=== PATIENT | female | born 1990 | race Caucasian/White ===

== ENCOUNTER 2018-12-28 21:17 | Emergency (ER) | payer MEDICAID, OTHER ==
[~2018-12-28] VITALS: Ht 164.5 cm; Wt 65.0 kg
[2018-12-28] MEDS ORDERED: LIDOCAINE/EPI 2% 1:100,00 (XYLOCAINE) 20 ML VIAL ONE (21:44)
[2018-12-28] MEDS ORDERED: LIDOCAINE/EPI 2% 1:100,00 (XYLOCAINE) 20 ML VIAL INJ ONE (21:45)
[2018-12-28] MEDS ORDERED: LIDOCAINE/EPI 1%-1:100,000 (XYLOCAINE) 20ML INJ ONE (21:45)
[2018-12-28] MEDS ORDERED: CLINDAMYCIN 150 MG (CLEOCIN) CAP PO ONE (21:45)
[2018-12-28] MEDS ORDERED: oxyCODONE/APAP 5/325MG (PERCOCET 5) TABLET PO ONE (21:45)
[2018-12-28] MEDS ORDERED: BUPIVACAINE 0.5% 30 ML (SENSORCAINE) VIAL INJ ONE (21:45)
[2018-12-28] MEDS ORDERED: IBUPROFEN 800 MG (MOTRIN) TAB PO ONE (21:45)
[2018-12-28] MEDS ORDERED: ONDANSETRON 4 MG (ZOFRAN) ORAL DISSOLVE TAB ONE (21:55)
[2018-12-28] MEDS ORDERED: ONDANSETRON 4 MG (ZOFRAN) ORAL DISSOLVE TAB PO STA ×2 (21:57→21:58)
--- NOTE | 2018-12-28 22:05 | ED EENT ---
History of Present Illness General Chief Complaint: Dental Problems/Pain Stated Complaint: ORAL PAIN Nursing Triage Note: Patient states that she has had tooth issues on the upper left for the past year. Patient states that it has gotten progressively worse over that time. Patient states her pain is a 10 on the 1-10 pain scale. History of Present Illness Date Seen by Provider: Dec 28, 2018 Time Seen by Provider: 21:15 Initial Comments The patient is a 28-year-old female who is otherwise healthy. She presents with concern for acute onset of acute on chronic left maxillary dental pain. Discom fort has been present intermittently for at least a year in association with several necrotic molars posteriorly on the left. Patient states that discomfort is considerably worse over the last few days and particularly this evening is a 10 out of 10 in severity. No fevers, trismus, significant facial swelling, pain or swelling to the floor of the mouth, trouble with secretions, shortness of breath. Patient has been taking ibuprofen intermittently without relief of symptoms. Allergies and Home Medications Allergies Coded Allergies: No Known Drug Allergies (Unverified , 12/28/18) Patient Home Medication List Home Medication List Reviewed: Yes Review of Systems Review of Systems Constitutional: see HPI All Other Systems Reviewed Negative Unless Noted: Yes (Negative excepted noted.) Past Srswuho-Ogvqme-Szutvf Hx Past Med/Social Hx: Reviewed Nursing Past Med/Soc Hx Patient Social History Alcohol Use: Denies Use Recreational Drug Use: No Smoking Status: Current Everyday Smoker Type Used: Cigarettes Recent Foreign Travel: No Contact w/Someone Who Travel: No Recent Infectious Disease Expo: No Physical Abuse: No Sexual Abuse: No Mistreated: No Fear: No Seasonal Allergies Seasonal Allergies: No Past Medical History Surgeries: No Respiratory: No Cardiac: No Neurological: No Genitourinary: No Gastrointestinal: No Musculoskeletal: No Endocrine: No HEENT: Yes (Dental Abscess) Cancer: No Psychosocial: No Integumentary: No Family Medical History Reviewed Nursing Family Hx Physical Exam Vital Signs Vital Signs - First Documented 12/28/18 21:29 Temp 36.4 Pulse 80 Resp 20 B/P (MAP) 135/98 (110) Pulse Ox 96 O2 Delivery Room Air Height, Weight, BMI Height: '" Weight: lbs. oz. kg; 24.00 BMI Method: General Appearance: no apparent distress This is a younger female appearing nontoxic and in no acute distress. Head is normocephalic and atraumatic. Neck is supple and nontender. Oropharynx is moist. There is extensive dental decay with necrotic molars noted to the left posterior maxillary region without associated gingival erythema, fluctuance or tenderness. No overlying facial swelling. No other obvious intraoral abnormality. No posterior oropharyngeal erythema, tonsillar exudates or swelling or uvular deviation and patient is tolerating secretions very well and speaking in a normal tone of voice. No trismus. No pain or swelling to the floor of the mouth or elevation of the tongue. Lungs are clear to auscultation in all stations. There is a normal S1 and S2 without rubs or gallops and capillary refill is appropriate, less than 2 seconds globally. Abdomen is soft, nontender and nondistended. Skin is warm and dry without cyanosis, clubbing or edema. P sychiatrically, the patient demonstrates appropriate mood and affect and is alert. Procedures/Interventions Dental Procedures: Left superior posterior and middle alveolar nerve blocks completed with 1:1 mixture of lidocaine and bupivicaine in standard fashion without complication. Patient tolerated the procedure well and had complete relief of dental pain. Progress/Results/Core Measures Results/Orders My Orders Orders - MEAGAN HOSKINS MD Oxycodone/Apap 5/325mg Tablet (Percocet (12/28/18 21:45) Ibuprofen Tablet (Motrin Tablet) (12/28/18 21:45) Clindamycin Capsule (Cleocin Capsule) (12/28/18 21:45) Bupivacaine 0.5% Injection (Sensorcaine (12/28/18 21:45) Lidocaine/Epi 2% 1:100,000 (Xylocaine/Ep (12/28/18 21:45) Lidocaine/Epi 2% 1:100,000 (Xylocaine/Ep (12/28/18 21:44) Ondansetron Oral Dissolve Tab (Zofran (12/28/18 21:55) Ondansetron Oral Dissolve Tab (Zofran (12/28/18 21:57) Ondansetron Oral Dissolve Tab (Zofran (12/28/18 21:58) Medications Given in ED Current Medications Medications Dose Ordered Sig/Vannesa Route Start Time Stop Time Status Last Admin Dose Admin Bupivacaine HCl 30 ml ONCE ONCE INJ 12/28/18 21:45 12/28/18 21:46 DC 12/28/18 21:50 5 ML Clindamycin HCl 450 mg ONCE ONCE PO 12/28/18 21:45 12/28/18 21:46 DC 12/28/18 21:49 450 MG Ibuprofen 800 mg ONCE ONCE PO 12/28/18 21:45 12/28/18 21:46 DC 12/28/18 21:49 800 MG Lidocaine/ Epinephrine 20 ml ONCE ONCE INJ 12/28/18 21:45 12/28/18 21:46 DC 12/28/18 21:49 5 ML Oxycodone/ Acetaminophen 1 tab ONCE ONCE PO 12/28/18 21:45 12/28/18 21:46 DC 12/28/18 21:49 1 TAB Vital Signs/I&O 12/28/18 21:29 Temp 36.4 Pulse 80 Resp 20 B/P (MAP) 135/98 (110) Pulse Ox 96 O2 Delivery Room Air Blood Pressure Mean: 110 Progress Progress Note : Time: 22:02 Progress Note Options discussed with the patient and she would like to proceed with a left superior posterior alveolar nerve block. We will additionally treat with medication for discomfort and antibiotic as noted. Patient does have a penicillin allergy so will use clindamycin. Patient is counseled that we are unable to definitively treat her dental decay here in the emergency department and that it is of paramount importance that she follow up very closely with the dental clinic. We have discussed low cost dental clinics and will provide referral information for [facility] dental clinic in [place]. Update 4: Nerve block completed without complication and patient tolerated the procedure well. She did have some nausea post procedurally which was treated with Zofran. We will proceed with discharge home at this time with medication for discomfort, clindamycin and referral information for dental clinic follow-up as noted. The patient understands that if she feels worse is that of better or develops other new symptoms of concern that she will need to return immediately for reevaluation. All questions are answered. Departure Impression Primary Impression: Dental decay Disposition: 01 HOME, SELF-CARE Condition: Improved Departure-Patient Inst. Referrals: NO,LOCAL PHYSICIAN (PCP) Primary Care Physician Patient Instructions: Dental Pain, Dental Pain (DC) Add. Discharge Instructions: Please call during weekday business hours to find out the schedule for the [facility]. They offer very inexpensive comprehensive dental services. It is critical that you follow up closely with a dentist as discussed. Take your medication for discomfort and finish the antibiotic as prescribed. Return right away with worsened symptoms or other new concern. Scripts [morphine IR tablet] No Conflict Check 15 MG PO Q6H for Breakthrough Pain, #9 TAB 0 Refills Prov: MEAGAN HOSKINS MD 12/28/18 Ibuprofen (Ibuprofen) 800 Mg Tablet 800 MG PO Q8H PRN for PAIN, #30 TAB 0 Refills Prov: MEAGAN HOSKINS MD 12/28/18 Clindamycin HCl (Clindamycin HCl) 150 Mg Capsule 300 MG PO TID for 10 Days, #60 CAP Prov: MEAGAN HOSKINS MD 12/28/18 MEAGAN HOSKINS MD Dec 28, 2018 22:04
[2018-12-28] MEDS ORDERED: MORPHINE IR PO (22:13)
[2018-12-28] MEDS ORDERED: IBUP-1780 PO (22:13)
[2018-12-28] MEDS ORDERED: CLIN150C17 PO (22:13)
[2018-12-28 22:15] VITALS: BP 104/53
== END 2018-12-28 22:15 | disposition home or self-care (01) ==
LOC: EDUNIT# 21:17 → ER FS 21:18
DX: K02.9 Dental caries, unspecified (principal); F17.210 Nicotine dependence, cigarettes, uncomplicated
CPT/HCPCS: 99283

== ENCOUNTER 2021-10-18 06:21 | Emergency (ER) | payer MEDICAID ==
[~2021-10-18 06:21] MED LIST: CLIN150C20 PO; IBUP-1780 PO; MORPHINE IR PO
[2021-10-18] MEDS ORDERED: FAMOTIDINE 20 MG (PEPCID) TABLET PO STA (06:30)
[2021-10-18] MEDS ORDERED: LIDOCAINE 2% VISCOUS 15 ML UDC PO ONE (06:30)
[2021-10-18] MEDS ORDERED: ANTACID SUSP 30 ML UDC (MYLANTA) PO ONE (06:30)
[2021-10-18] MEDS ORDERED: KETOROLAC 30 MG/ML VIAL IVP ONE (06:30)
[2021-10-18] MEDS ORDERED: ONDANSETRON 4 MG/2 ML (SDV) Z0FRAN IVP ONE (06:30)
[2021-10-18 06:37] LABS: HEMATOCRIT 39 % (35-52); HEMOGLOBIN 13.2 g/dL (11.5-16.0); MEAN CORPUSCULAR HEMOGLOBIN 31 pg (25-34); WHITE BLOOD COUNT 7.2 10^3/uL (4.3-11.0)
[2021-10-18 06:38] LABS: BILIRUBIN,URINE NEGATIVE (NEGATIVE); CLARITY,URINE CLEAR; COLOR,URINE YELLOW; GLUCOSE, URINE (UA) NEGATIVE (NEGATIVE); KETONES,URINE NEGATIVE (NEGATIVE); LEUKOCYTE ESTERASE ,URINE NEGATIVE (NEGATIVE); NITRITE,URINE NEGATIVE (NEGATIVE); PROTEIN,URINE NEGATIVE (NEGATIVE)
[2021-10-18 06:38] LABS: BASOPHILS % (AUTO) 0 % (0-10); EOSINOPHILS # (AUTO) 0.1 10^3/uL (0.0-0.3); EOSINOPHILS % (AUTO) 1 % (0-10); LYMPHOCYTES # (AUTO) 2.5 X 10^3 (1.0-4.0); LYMPHOCYTES % (AUTO) 34 % (12-44); MEAN CORPUSCULAR HGB CONC 34 g/dL (32-36); MEAN CORPUSCULAR VOLUME 92 fL (80-99); MONOCYTES # (AUTO) 0.8 X 10^3 (0.0-1.0); MONOCYTES % (AUTO) 10 % (0-12); NEUTROPHILS # (AUTO) 3.9 X 10^3 (1.8-7.8); NEUTROPHILS % (AUTO) 54 % (42-75); PLATELET COUNT 197 10^3/uL (130-400)
[2021-10-18 06:42] LABS: BACTERIA,URINE MODERATE /HPF; WBC,URINE 0-2 /HPF
--- NOTE | 2021-10-18 06:43 | ED Abdominal Pain ---
General Chief Complaint: Abdominal/GI Problems Stated Complaint: RIGHT SIDE PAIN Nursing Triage Note: Pt complaining of RUQ pain that radiates to her back. Pt states she has had gallbladder problems in the past and was supposed to follow up but never did Source of Information: Patient Exam Limitations: No Limitations (KATARINA BROTHERS MD) History of Present Illness Date Seen by Provider: Oct 18, 2021 Time Seen by Provider: 06:24 Initial Comments 31-year-old female with no pertinent past medical history coming in due to right upper quadrant pain. It sharp/sometimes burning, radiates through to her back, seems intermittent, moderate, worse with eating, better with rest. Woke her up around 2 AM in the morning. She had pain like this 3 months ago went to an ER in [place] where she lived, and was told she probably has gallbladder issues. She says she has never had any type of ultrasound or CT scan. She says in the past they have just done blood work and given her medication. She has not had any medicine as of yet today. She just moved here roughly 2 months ago and does not have any doctor that she sees yet. She endorses some nausea with it. She is otherwise denying any fever, vomiting, diarrhea, chest pain, shortness of breath, rash, dysuria, vaginal bleeding, vaginal discharge, or any other conc erns. LMP was roughly 3 weeks ago and she has had her tubes tied. (KATARINA BROTHERS MD) Allergies and Home Medications Allergies Coded Allergies: Penicillins (Verified Allergy, Severe, Anaphylaxis, 10/18/21) Patient Home Medication List Home Medication List Reviewed: Yes (KATARINA BROTHERS MD) Amoxicillin/Potassium Clav (Amox Tr-K Clv 875-125 mg Tab) 875 Mg-125 Mg Tablet, 1 EACH PO BID Prescribed by: KATARINA BROTHERS on 10/18/21 0707 Clindamycin HCl (Clindamycin HCl) 150 Mg Capsule, 300 MG PO TID Prescribed by: MEAGAN HOSKINS on 12/28/182212 Ibuprofen (Ibuprofen) 800 Mg Tablet, 800 MG PO Q8H PRN for PAIN Prescribed by: MEAGAN HOSKINS on 12/28/182212 Ondansetron (Ondansetron Odt) 4 Mg Tab.rapdis, 4 MG PO Q6H PRN for NAUSEA/VOMITING- LINE Prescribed by: KATARINA BROTHERS on 10/18/21 0656 Oxycodone HCl (Oxycodone HCl) 5 Mg Tablet, 5 MG PO Q6H PRN for PAIN-SEVERE (8- 10) Prescribed by: KATARINA BROTHERS on 10/18/21 0706 [morphine IR tablet] , 15 MG PO Q6H Prescribed by: MEAGAN HOSKINS on 12/28/18 5427 Review of Systems Review of Systems Constitutional: fever EENTM: No Blurred Vision Respiratory: Denies Cough, Denies Shortness of Air Cardiovascular: Denies Chest Pain Gastrointestinal: Abdominal Pain; Denies Diarrhea; Nausea; Denies Vomiting Genitourinary: Denies Burning; Frequency (Reports she has had urinary frequency for years) Musculoskeletal: no symptoms reported Skin: no symptoms reported Psychiatric/Neurological: No Symptoms Reported Endocrine: No Symptoms Reported Hematologic/Lymphatic: No Symptoms Reported (KATARINA BROTHERS MD) All Other Systems Reviewed Negative Unless Noted: Yes (KATARINA BROTHERS MD) Past Nrxfyrr-Vlachx-Cbckvw Hx Patient Social History Tobacco Use?: No Use of E-Cig and/or Vaping dev: No Substance use?: No Alcohol Use?: No Pt feels they are or have been: No (KATARINA BROTHERS MD) Seasonal Allergies Seasonal Allergies: No (KATARINA BROTHERS MD) Past Medical History Surgeries: No Respiratory: No Cardiac: No Neurological: No Genitourinary: No Gastrointestinal: No Musculoskeletal: No Endocrine: No HEENT: Yes (Dental Abscess) Cancer: No Psychosocial: No Integumentary: No (KATARINA BROTHERS MD) Physical Exam Vital Signs Vital Signs - First Documented 10/18/21 06:21 Temp 35.8 Pulse 58 Resp 18 B/P (MAP) 134/66 (88) Pulse Ox 98 O2 Delivery Room Air (JADYA FINCH MD) Vital Signs Capillary Refill : Less Than 3 Seconds (KATARINA BROTHERS MD) Height/Weight/BMI Height: '" Weight: lbs. oz. kg; 24.00 BMI Method: General Appearance: WD/WN, no apparent distress HEENT: PERRL/EOMI, normal ENT inspection, pharynx normal Neck: non-tender, full range of motion, supple, normal inspection Respiratory: chest non-tender, lungs clear, normal breath sounds, no respiratory distress, no accessory muscle use Cardiovascular: regular rate, rhythm, no edema, no murmur Gastrointestinal: normal bowel sounds, soft; No distended, No guarding, No rebound; tenderness Extremities: normal range of motion, non-tender, normal inspection, no pedal edema, no calf tenderness, normal capillary refill Back: normal inspection, no CVA tenderness Neurologic/Psychiatric: no motor/sensory deficits, alert, normal mood/affect Skin: normal color, warm/dry Lymphatic: no adenopathy (KATARINA BROTHERS MD) Progress/Results/Core Measures Results/Orders Lab Results Laboratory Tests Test 10/18/21 06:25 10/18/21 06:28 Range/Units White Blood Count 7.2 4.3-11.0 10^3/uL Red Blood Count 4.24 3.80-5.11 10^6/uL Hemoglobin 13.2 11.5-16.0 g/dL Hematocrit 39 35-52 % Mean Corpuscular Volume 92 80-99 fL Mean Corpuscular Hemoglobin 31 25-34 pg Mean Corpuscular Hemoglobin Concent 34 32-36 g/dL Red Cell Distribution Width 13.2 10.0-14.5 % Platelet Count 197 130-400 10^3/uL Mean Platelet Volume 11.0 9.0-12.2 fL Neutrophils (%) (Auto) 54 42-75 % Lymphocytes (%) (Auto) 34 12-44 % Monocytes (%) (Auto) 10 0-12 % Eosinophils (%) (Auto) 1 0-10 % Basophils (%) (Auto) 0 0-10 % Neutrophils # (Auto) 3.9 1.8-7.8 X 10^3 Lymphocytes # (Auto) 2.5 1.0-4.0 X 10^3 Monocytes # (Auto) 0.8 0.0-1.0 X 10^3 Eosinophils # (Auto) 0.1 0.0-0.3 10^3/uL Basophils # (Auto) 0.0 0.0-0.1 10^3/uL Urine Color YELLOW Urine Clarity CLEAR Urine pH 8.0 5-9 Urine Specific [place] 1.025 H 1.016-1.022 Urine Protein NEGATIVE NEGATIVE Urine Glucose (UA) NEGATIVE NEGATIVE Urine Ketones NEGATIVE NEGATIVE Urine Nitrite NEGATIVE NEGATIVE Urine Bilirubin NEGATIVE NEGATIVE Urine Urobilinogen 0.2 < = 1.0 MG/DL Urine Leukocyte Esterase NEGATIVE NEGATIVE Urine RBC (Auto) NEGATIVE NEGATIVE Urine RBC NONE /HPF Urine WBC 0-2 /HPF Urine Squamous Epithelial Cells 10-25 H /HPF Urine Crystals NONE /LPF Urine Bacteria MODERATE H /HPF Urine Casts NONE /LPF Urine Mucus NEGATIVE /LPF Urine Culture Indicated YES Sodium Level 141 135-145 MMOL/L Potassium Level 4.7 3.6-5.0 MMOL/L Chloride Level 108 H 98-107 MMOL/L Carbon Dioxide Level 23 21-32 MMOL/L Anion Gap 10 5-14 MMOL/L Blood Urea Nitrogen 11 7-18 MG/DL Creatinine 0.66 0.60-1.30 MG/DL Estimat Glomerular Filtration Rate 121 BUN/Creatinine Ratio 17 Glucose Level 140 H 70-105 MG/DL Calcium Level 10.0 8.5-10.1 MG/DL Corrected Calcium 9.6 8.5-10.1 MG/DL Total Bilirubin 0.2 0.1-1.0 MG/DL Aspartate Amino Transf (AST/SGOT) 17 5-34 U/L Alanine Aminotransferase (ALT/SGPT) 24 0-55 U/L Alkaline Phosphatase 102 40-136 U/L Total Protein 7.2 6.4-8.2 GM/DL Albumin 4.5 3.2-4.5 GM/DL Lipase 21 8-78 U/L (JAYDA FINCH MD) My Orders Orders - JAYDA FINCH MD Pantoprazole Injection (Protonix Injecti (10/18/21 07:23) (JAYDA FINCH MD) Medications Given in ED Current Medications Medications Dose Ordered Sig/Vannesa Route Start Time Stop Time Status Last Admin Dose Admin Al Hydrox/Mg Hydrox/Simethicone 30 ml ONCE ONCE PO 10/18/21 06:30 10/18/21 06:34 DC 10/18/21 06:37 30 ML Iohexol 100 ml ONCE ONCE IV 10/18/21 06:45 10/18/21 06:46 DC 10/18/21 06:46 100 ML Ketorolac Tromethamine 15 mg ONCE ONCE IVP 10/18/21 06:30 10/18/21 06:34 DC 10/18/21 06:37 15 MG Lidocaine HCl 15 ml ONCE ONCE PO 10/18/21 06:30 10/18/21 06:34 DC 10/18/21 06:37 15 ML Morphine Sulfate 4 mg ONCE PRN IVP 10/18/21 07:00 10/18/21 07:30 4 MG Ondansetron HCl 4 mg ONCE ONCE IVP 10/18/21 06:30 10/18/21 06:34 DC 10/18/21 06:37 4 MG Sodium Chloride 100 ml ONCE ONCE IV 10/18/21 06:45 10/18/21 06:46 DC 10/18/21 06:46 100 ML (JAYDA FINCH MD) Vital Signs/I&O 10/18/21 06:21 Temp 35.8 Pulse 58 Resp 18 B/P (MAP) 134/66 (88) Pulse Ox 98 O2 Delivery Room Air (JAYDA FINCH MD) Blood Pressure Mean: 88 Progress Progress Note : Progress Note 31-year-old female with above history coming in due to right upper quadrant abdominal pain. ABCs were intact and vitals were stable on presentation. Physical exam with right upper quadrant tenderness, but it does radiate through to her right flank and back. An IV was placed and basic labs were obtained including CMP and lipase. She was given a GI cocktail as well as Toradol for pain control. I favor that this is gallbladder pathology over an COVID gastric ulcer. On the differential due to the flank pain would also be ureterolithiasis. Because of this CT scan ordered to help further differentiate. The patient will be signed out to the oncoming physician pending this imaging and labwork. (KATARINA BROTHERS MD) Progress Note : Time: 07:44 Progress Note On assumed care of the patient at [address] came back shortly before 730. I does show a large gallstone and some distended gallbladder as well as some mild gallbladder wall thickening. Patient was still having pain despite Toradol GI cocktail and Pepcid. Morphine and Protonix were added but she was still having some discomfort in her upper abdomen. She states that she has been dealing with this for over a year and every time she eats something that she gets pain. I spoke with Dr. SANCHEZ the on-call surgeon. He advised that if her pain was tolerable level for going home he could see her at 10 AM tomorrow and plan on scheduling surgery for Tuesday. If she goes home she would be on oral pain pills nausea medicine and he recommended Cipro and Flagyl for antibiotics with gallbladder wall thickening. After discussing with the patient she felt the pain, although not gone, was at a tolerable level. She wanted to try going home with antibiotics and pain medicine and then see him at 10 AM on Tuesday with surgery scheduled for Tuesday. (JAYDA FINCH MD) Diagnostic Imaging Diagonstic Imaging: CT Plain Films/CT/US/NM/MRI: abdomen, pelvis Comments [facility] [place], [place] NAME: [facility] REC#: [id number] PT STATUS: REG ER : 1990 PHYSICIAN: KATARINA BROTHERS MD ADMIT DATE: 10/18/21/ER FS Draft Date of Exam:10/18/21 CT ABDOMEN/PELVIS W PROCEDURE: CT abdomen and pelvis with contrast. TECHNIQUE: Multiple contiguous axial images were obtained through the abdomen and pelvis after administration of intravenous contrast. Auto Exposure Controls were utilized during the CT exam to meet ALARA standards for radiation dose reduction. All CT scans use one or more of the following dose optimizing techniques: automated exposure control, MA and/or KvP adjustment based on patient size and exam type or iterative reconstruction. INDICATION: 31-year-old female, upper abdominal pain. CORRELATION STUDY: None. FINDINGS: LOWER THORAX: Clear. Heart size normal. Minimal wall thickening of the GE junction. LIVER: Enlarged at greater than 21 cm in length with mild to moderate steatosis. GALLBLADDER: 15 mm gallstone near the neck. Gallbladder is mildly distended. Question minimal gallbladder wall thickening. No overt bile duct dilatation. SPLEEN: Unremarkable. PANCREAS: Unremarkable. ADRENAL GLANDS: Unremarkable. KIDNEYS: Normal configuration. No calcification or obstruction. ABDOMINAL AORTA: Unremarkable, nonaneurysmal. GASTROINTESTINAL TRACT: No obstruction or inflammation. Normal appendix. URINARY BLADDER: Relatively decompressed but generally unremarkable. REPRODUCTIVE: Endometrium appears mildly thickened maybe owing to phase of menstrual cycle. There is a peripherally enhancing 3.4 cm cystic mass left adnexa likely ovarian cyst. Small amount of pelvic fluid. OSSEOUS STRUCTURES: No acute abnormality. OTHER: None. IMPRESSION: 1. Cholelithiasis with a prominent stone near the gallbladder neck. Question early gallbladder wall thickening. 2. 3.4 cm left adnexal cyst, likely ovarian. Small amount of pelvic fluid, within physiologic range. 3. Hepatomegaly with hepatic steatosis. Dictated on workstation # [id number] Dict: 10/18/21710 Trans: 10/18/21716 [facility] [id number] Interpreted by: YUKI JOHNSON DO Electronically signed by: Reviewed: Reviewed by Me (JAYDA FINCH MD) Departure Impression Primary Impression: Cholelithiasis Qualified Codes: K80.20 - Calculus of gallbladder without cholecystitis without obstruction Additional Impressions: RUQ pain Nausea alone Gallbladder attack Thickening of wall of gallbladder Disposition: HOME, SELF-CARE Condition: Stable Departure-Patient Inst. Decision time for Depature: 07:49 (JAYDA FINCH MD) Referrals: NO,LOCAL PHYSICIAN (PCP) Primary Care Physician [facility]/MARSHA VOGT MD Patient Instructions: Gallstones ED, Gallbladder Diet, Abdominal Pain, Adult ED Add. Discharge Instructions: Call the [facility] whose number ([phone]) is in this paperwork on Tuesday to schedule an appointment for primary care. See Dr. Sanchez in clinic at 10 am Tuesday morning. He will meet with you and then schedule surgery for gallbladder removal on Friday 10/20 Follow a low fat, bland diet. This will help limit the pain you get from eating. Antibiotics, pain meds, and nausea meds were sent to the [facility] here in [place]. If your pain is not controlled to a tolerable level, fever over 101 Fahrenheit, uncontrolled nausea and vomiting despite the nausea medication then you should return here or consider going directly to the emergency department at [facility]. If you do have to be seen again today before you get in with Dr. SANCHEZ tomorrow let the emergency department know that they were considering admitting you to Dr. SANCHEZ to have your gallbladder removed. Scripts Metronidazole (Metronidazole) 500 Mg Tablet 500 MG PO BID for Gallstones for 7 Days, #14 TAB 0 Refills Prov: JAYDA FINCH MD 10/18/21 Ciprofloxacin HCl (Ciprofloxacin HCl) 500 Mg Tablet 500 MG PO BID for Gallstones for 7 Days, #14 TAB 0 Refills Prov: ENYART,JAYDA E MD 10/18/21 Oxycodone HCl (Oxycodone HCl) 5 Mg Tablet 5 MG PO Q6H PRN for PAIN-SEVERE (8-10) for 3 Days, #12 TAB Prov: KATARINA BROTHERS MD 10/18/21 Ondansetron (Ondansetron Odt) 4 Mg Tab.rapdis 4 MG PO Q6H PRN for NAUSEA/VOMITING-1ST LINE for 5 Days, #20 TAB Prov: KATARINA BROTHERS MD 10/18/21 Work/School Note: Work Release Form Date Seen in the Emergency Department: Oct 18, 2021 Return to Work: Oct 21, 2021 Restrictions: Return-No Vomiting(24hrs) KATARINA BROTHERS MD Oct 18, 2021 06:43 JAYDA FINCH MD Oct 18, 2021 07:50
[2021-10-18] MEDS ORDERED: NS 100 ML (IVPB) BAG IV ONE (06:45)
[2021-10-18] MEDS ORDERED: HOLD METFORMIN - RECEIVED CONTRAST 20 ML VIAL IV SCH (06:45)
[2021-10-18] MEDS ORDERED: IOHEXOL 350 MG/ML 100 ML (OMNIPAQUE 350) VIAL IV ONE (06:45)
[2021-10-18] MEDS ORDERED: ONDA4TAB11 PO (06:56)
[2021-10-18 06:58] LABS: POTASSIUM 4.7 MMOL/L (3.6-5.0)
[2021-10-18 06:59] LABS: ALBUMIN 4.5 GM/DL (3.2-4.5); BILIRUBIN,TOTAL 0.2 MG/DL (0.1-1.0); CREATININE SERUM 0.66 MG/DL (0.60-1.30); TOTAL PROTEIN 7.2 GM/DL (6.4-8.2)
[2021-10-18] MEDS ORDERED: morphine INJ 10 MG/ML 1ML (SYR OR VIAL) IVP PRN (07:00)
[2021-10-18] MEDS ORDERED: OXYC5TAB PO (07:05)
[2021-10-18] MEDS ORDERED: AMOX1TAB12 PO (07:07)
--- NOTE | 2021-10-18 07:18 | Diagnostic Imaging Report ---
PROCEDURE: CT abdomen and pelvis with contrast. TECHNIQUE: Multiple contiguous axial images were obtained through the abdomen and pelvis after administration of intravenous contrast. Auto Exposure Controls were utilized during the CT exam to meet ALARA standards for radiation dose reduction. All CT scans use one or more of the following dose optimizing techniques: automated exposure control, MA and/or KvP adjustment based on patient size and exam type or iterative reconstruction. INDICATION: 31-year-old female, upper abdominal pain. CORRELATION STUDY: None. FINDINGS: LOWER THORAX: Clear. Heart size normal. Minimal wall thickening of the GE junction. LIVER: Enlarged at greater than 21 cm in length with mild to moderate steatosis. GALLBLADDER: 15 mm gallstone near the neck. Gallbladder is mildly distended. Question minimal gallbladder wall thickening. No overt bile duct dilatation. SPLEEN: Unremarkable. PANCREAS: Unremarkable. ADRENAL GLANDS: Unremarkable. KIDNEYS: Normal configuration. No calcification or obstruction. ABDOMINAL AORTA: Unremarkable, nonaneurysmal. GASTROINTESTINAL TRACT: No obstruction or inflammation. Normal appendix. URINARY BLADDER: Relatively decompressed but generally unremarkable. REPRODUCTIVE: Endometrium appears mildly thickened maybe owing to phase of menstrual cycle. There is a peripherally enhancing 3.4 cm cystic mass left adnexa likely ovarian cyst. Small amount of pelvic fluid. OSSEOUS STRUCTURES: No acute abnormality. OTHER: None. IMPRESSION: 1. Cholelithiasis with a prominent stone near the gallbladder neck. Question early gallbladder wall thickening. 2. 3.4 cm left adnexal cyst, likely ovarian. Small amount of pelvic fluid, within physiologic range. 3. Hepatomegaly with hepatic steatosis. Dictated by: Dictated on workstation # [id number]
[2021-10-18] MEDS ORDERED: PANTOPRAZOLE 40 MG (PROTONIX) VIAL IV STA (07:23)
[2021-10-18] MEDS ORDERED: CIPR500T5 PO (07:51)
[2021-10-18] MEDS ORDERED: METR-145 PO (07:51)
[2021-10-18 08:03] VITALS: BP 134/76
[2021-10-20] MEDS ORDERED: HYDR-3817 PO (14:26)
== END 2021-10-18 08:05 | disposition home or self-care (01) ==
LOC: EDUNIT# 06:21 → ER FS 06:23
DX: K80.20 Calculus of gallbladder without cholecystitis without obstruction (principal); K82.8 Other specified diseases of gallbladder; Z28.310 Unvaccinated for COVID-19
CPT/HCPCS: 36415; 74177; 80053; 81000; 83690; 84703; 85025; 87088; Q9967

== ENCOUNTER 2021-10-19 10:46 | Outpatient (CLI) | payer MEDICAID ==
[~2021-10-19] VITALS: Ht 165.1 cm; Wt 78.6 kg
[~2021-10-19 10:46] MED LIST changes: +AMOX1TAB12 PO; +CIPR500T5 PO; +METR-145 PO; +ONDA4TAB11 PO; +OXYC5TAB PO
[2021-10-20] MEDS ORDERED: HYDR-3817 PO (14:26)
== END 2021-10-19 11:20 | disposition home or self-care (01) ==
LOC: PREOP 10:46
PROVIDERS: ATTEND Surgery
DX: Z01.818 Encounter for other preprocedural examination (principal)

== ENCOUNTER 2021-10-20 09:43 | Day surgery (SDC) | payer MEDICAID ==
[2021-10-20] VITALS (10 sets, daily range): BP systolic 112–141; BP diastolic 58–81
[~2021-10-20] VITALS: Ht 165 cm; Wt 78.6 kg
[2021-10-20] MEDS ORDERED: CLINDAMYCIN 600 MG/50 ML IVPB 50 ML IV ONE (10:15)
[2021-10-20] MEDS ORDERED: LIDOCAINE/EPI 2% 1:100,00 (XYLOCAINE) 20 ML VIAL ONE (10:26)
[2021-10-20] MEDS ORDERED: LACTATED RINGERS 1,000 ML IV PRN (10:45)
[2021-10-20] MEDS ORDERED: SEVOFLURANE (ULTANE) 15 ML INHAL SOLN ONE ×2 (11:52→13:42)
[2021-10-20] MEDS ORDERED: MIDAZOLAM 2 MG/2 ML (VERSED) VIAL ONE (11:52)
[2021-10-20] MEDS ORDERED: ONDANSETRON 4 MG/2 ML (SDV) Z0FRAN ONE (11:52)
[2021-10-20] MEDS ORDERED: fentaNYL INJ 100 MCG/2 ML AMP ONE (11:52)
[2021-10-20] MEDS ORDERED: proPOfol 200 MG/20 ML (DIPRIVAN) VIAL IV ONE (11:52)
[2021-10-20] MEDS ORDERED: LIDOCAINE PF 2% 5 ML (XYLOCAINE) VIAL ONE (11:52)
[2021-10-20] MEDS ORDERED: ROCURONIUM 50 MG/5 ML (ZEMURON) VIAL IV ONE (13:42)
[2021-10-20] MEDS ORDERED: morphine INJ 10 MG/ML 1ML (SYR OR VIAL) ONE (13:44)
[2021-10-20] MEDS ORDERED: ATROPINE INJ 0.4 MG/ML SDV ONE (14:09)
--- NOTE | 2021-10-20 14:24 | Progress Note-Pre Operative ---
Pre-Operative Progress Note H&P Reviewed The H&P was reviewed, patient examined and no changes noted. Date Seen by Provider: Oct 20, 2021 Time Seen by Provider: 12:00 Date H&P Reviewed: Oct 20, 2021 Time H&P Reviewed: 12:00 Pre-Operative Diagnosis: chronic calculous cholecystitis MARSHA SHAW MD Oct 20, 2021 14:24
--- NOTE | 2021-10-20 14:25 | Progress Note-Post Operative ---
Post-Operative Progess Note Surgeon (s)/.Net Architect (s) Surgeon MARSHA SHAW MD .Net Architect: azalia isbell RELATIONS COORDINATOR Pre-Operative Diagnosis chronic calculous cholecystitis Post-Operative Diagnosis same Procedure & Operative Findings Date of Procedure 10/20/21 Procedure Performed/Findings laparoscopic cholecystectomy Anesthesia Type get Estimated Blood Loss Estimated blood loss (mL): minimal Specimens/Packing Specimens Removed gallbladder MARSHA SHAW MD Oct 20, 2021 14:25
[2021-10-20] MEDS ORDERED: HYDR-3817 PO (14:26)
--- NOTE | 2021-10-20 14:27 | Discharge Inst-Surgical ---
D/C Lap Instructions-COLIN New, Converted, or Re-Newed RX: RX on Chart Follow Up Appt in 2 weeks Activity as tolerated No driving for 24 hours No driving while on pain medications Incentive Spirometry use every 2 hours while awake Regular Diet Symptoms to Report: Fever over 101 degree F, Nausea/Vomiting Infection Signs and Symptoms to report: Increased redness, Foul odor of wound, Increased drainage Bathing instructions: May shower Operative Area Clean/Dry; Keep incision clean/dry If any problems/questions: Contact your physician or go to Emergency Room MARSHA SHAW MD Oct 20, 2021 14:27
[2021-10-20] MEDS ORDERED: morphine INJ 10 MG/ML 1ML (SYR OR VIAL) IVP PRN ×2 (14:30)
[2021-10-20] MEDS ORDERED: oxyCODONE/APAP 5/325MG (PERCOCET 5) TABLET PO PRN (14:30)
[2021-10-20] MEDS ORDERED: ACETAMINOPHEN 325 MG TABLET PO PRN (14:30)
[2021-10-20] MEDS ORDERED: ONDANSETRON 4 MG/2 ML (SDV) Z0FRAN IVP PRN ×2 (14:30→14:45)
--- NOTE | 2021-10-20 14:35 | Anesthesia-General Post-Op ---
General Patient Condition Mental Status/LOC: Same as Preop Cardiovascular: Satisfactory Nausea/Vomiting: Absent Respiratory: Satisfactory Pain: Controlled Complications: Absent Post Op Complications Complications None Follow Up Care/Instructions Patient Instructions None needed. Anesthesia/Patient Condition Patient Condition Patient is doing well, no complaints, stable vital signs, no apparent adverse anesthesia problems. No complications reported per nursing. MILES BUTLER CRNA Oct 20, 2021 14:35
[2021-10-20] MEDS ORDERED: morphine INJ 10 MG/ML 1ML (SYR OR VIAL) IVP ONE (14:45)
[2021-10-20] MEDS ORDERED: MEPERIDINE (DEMEROL) INJ 50 MG/ML IVP ONE (14:45)
[2021-10-20] MEDS ORDERED: fentaNYL INJ 100 MCG/2 ML AMP IVP ONE (14:45)
[2021-10-20] MEDS ORDERED: oxyCODONE/APAP 5/325MG (PERCOCET 5) TABLET ONE (15:26)
--- NOTE | 2021-10-20 21:28 | OPERATIVE REPORT ---
DATE OF SERVICE: 10/20/2021 PREOPERATIVE DIAGNOSIS: Symptomatic chronic calculous cholecystitis. POSTOPERATIVE DIAGNOSIS: Symptomatic chronic calculous cholecystitis. PROCEDURE: Laparoscopic cholecystectomy. SURGEON: Marsha Shaw MD. CHAIR MENDER: Kwabena Villafana APRN. ANESTHESIA: General endotracheal. ESTIMATED BLOOD LOSS: Minimal. FINDINGS: Distended gallbladder with gallbladder wall thickening and two large stones. DISPOSITION: The patient tolerated the procedure well. INDICATIONS: The patient is a 31-year-old female who has had a 1-year history of intermittent episodes of abdominal bloating and crampy pain usually after eating meals. She did not know what this was initially. She then had a bad episode over the last weekend where there was significant amount of pain in the right upper abdominal quadrant with radiation towards the back. She underwent diagnostic imaging and was found to have gallbladder wall thickening as well as gallstones. DESCRIPTION OF PROCEDURE: The patient was brought to the operating room, laid supine on the table. After adequate IV pain and sedative medications and general endotracheal intubation, the abdomen was prepped and draped in standard surgical fashion. A 0.5% Marcaine with epinephrine was then used to anesthetize the overlying skin in the left upper abdominal quadrant and a transverse skin incision made using a 15 blade. An 0 silk suture was applied to the medial aspect of incision for retraction and a Veress needle inserted with a low opening pressure of 0 mmHg and then the abdomen was insufflated to 15 mmHg pressure. The Veress needle removed and a 5 mm XL trocar placed followed by a 5 mm 45-degree angle laparoscope visualizing the peritoneal cavity. A 4-quadrant abdominal exploration was performed. There was a distended gallbladder as well as mild gallbladder wall thickening. Under direct visualization, we then proceeded to place a supraumbilical 10 mm port after the skin and peritoneal lining were anesthetized using 0.5% Marcaine with epinephrine and a transverse skin incision made using a 15 blade. In a similar manner, a right upper abdominal quadrant 5 mm port was placed. The patient was then placed in reverse Trendelenburg position as well as plane right side up, left side down. The fundus of the gallbladder was then retracted anteriorly and superiorly. The hepatoduodenal ligament was then dissected using blunt dissection as well as electrocautery on the hook instrument as well as a [place] dissector. The entire critical view of safety was identified including the triangle of Calot as well as the cystic duct and artery as only two structures going to the gallbladder as well as the cystic plate behind the proximal gallbladder. A timeout was then taken and the cystic duct and artery were then clipped proximally and distally and cut with EndoShears. The gallbladder was then dissected off the liver bed using cautery on hook instrument with visualization of good hemostasis as well as no leaking ducts of Luschka. The gallbladder was removed through the 10 mm port site using an EndoCatch bag. All three ports kyler venous blood. The gallbladder was removed through the 10 mm port site using an EndoCatch bag. The fascia and peritoneal lining were then closed under direct visualization using a Dwayne-Aurora device and 0 Vicryl suture. The abdomen was desufflated and remaining ports removed. All skin incisions were closed using 4-0 Monocryl running subcuticular sutures. Wounds were then cleaned and covered with Dermabond. The patient tolerated the procedure well. We will start IV normal pain medication as well as a clear liquid diet. When she is tolerating clears, has good pain control with oral pain medications, ambulating well, we will discharge her home where she will be instructed to do no heavy lifting or exertion for the next two weeks. Job ID: [id number] DocumentID: [id number] Dictated Date: 10/20/2021 14:32:16 [employer]ite [employer]ater Date: 10/20/2021 21:27:14 Dictated By: MARSHA SHAW MD
== END 2021-10-20 17:46 | disposition home or self-care (01) ==
LOC: SDC 09:43
PROVIDERS: ATTEND Surgery
DX: K80.10 Calculus of gallbladder with chronic cholecystitis without obstruction (principal); Z87.891 Personal history of nicotine dependence
CPT/HCPCS: 84703; 87081; 88304

== ENCOUNTER 2023-01-16 14:09 | Emergency (ER) | payer MEDICAID ==
[~2023-01-16] VITALS: Ht 160 cm; Wt 70.1 kg
[~2023-01-16 14:09] MED LIST changes: +HYDR-3817 PO
--- NOTE | 2023-01-16 14:28 | ED Headache ---
General Chief Complaint: Cardiac/General Problems Stated Complaint: ELEV BP Source: patient Exam Limitations: no limitations History of Present Illness Date Seen by Provider: Jan 16, 2023 Time Seen by Provider: 14:13 Initial Comments 32yoF with PMH of hypertension and ?thyroid issues coming in due to elevated blood pressure and headache. She states the headache came on slowly a couple days ago, is moderate to severe right now, feels it behind her eyes. Denies any weakness or numbness associated with it. Denies any fever or neck stiffness also associated with it. She did not hit her head. She went to the clinic a couple days ago and was put on propanolol for blood pressure and her thyroid she states. She has not taken the medicine because it scared her to take something for blood pressure and thyroid. She is otherwise denying any other acute complaints. Allergies and Home Medications Allergies Coded Allergies: Penicillins (Verified Allergy, Severe, Anaphylaxis, 10/19/21) Patient Home Medication List Home Medication List Reviewed: Yes Ciprofloxacin HCl (Ciprofloxacin HCl) 500 Mg Tablet, 500 MG PO BID Prescribed by: JAYDA FINCH on 10/18/21 0751 Hydrocodone/Acetaminophen (Hydrocodone-Acetamin 7.5-325) 7.5 Mg-325 Mg Tablet, 1 EACH PO Q4H Prescribed by: MARSHA SHAW on 10/20/21 1426 Metronidazole (Metronidazole) 500 Mg Tablet, 500 MG PO BID Prescribed by: JAYDA FINCH on 10/18/21 0751 Ondansetron (Ondansetron Odt) 4 Mg Tab.rapdis, 4 MG PO Q6H PRN for NAUSEA/VOMITING-1ST LINE Prescribed by: KATARINA BROTHERS on 10/18/21 0656 Oxycodone HCl (Oxycodone HCl) 5 Mg Tablet, 5 MG PO Q6H PRN for PAIN-SEVERE (8- 10) Prescribed by: KATARINA BROTHERS on 10/18/21 0706 Review of Systems Review of Systems Constitutional: No fever Eyes: No Symptoms Reported Ears, Nose, Mouth, Throat: no symptoms reported Respiratory: no symptoms reported Cardiovascular: see HPI Gastrointestinal: no symptoms reported Genitourinary: no symptoms reported Musculoskeletal: no symptoms reported Skin: no symptoms reported Psychiatric/Neurological: See HPI All Other Systems Reviewed Negative Unless Noted: Yes Past Zhqutjm-Fenykp-Eptlqa Hx Seasonal Allergies Seasonal Allergies: No Past Medical History Surgeries: Yes (RIGHT ARM, TUBAL LIGATION, CSECTIONX2) Tonsillectomy, Tubal Ligation Respiratory: No Cardiac: No Neurological: No 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 oz. kg; 28.87 BMI Method: General Appearance: WD/WN, no apparent distress HEENT: PERRL/EOMI, normal ENT inspection, pharynx normal Neck: non-tender, full range of motion, supple, normal inspection Cardiovascular: regular rate, rhythm, no edema, no murmur Respiratory: chest non-tender, lungs clear, normal breath sounds, no respiratory distress, no accessory muscle use Gastrointestinal: normal bowel sounds, non tender, soft; No distended, No guarding, No rebound Back: normal inspection, no CVA tenderness Extremities: normal range of motion, non-tender, normal inspection, no pedal edema, no calf tenderness, normal capillary refill Psychiatric: alert, oriented x 3 Crainal Nerves: normal hearing, normal speech, PERRL Coordination/Gait: normal finger to nose, normal gait Motor/Sensory: no motor deficit, no sensory deficit, no pronator drift Skin: normal color, warm/dry Progress/Results/Core Measures Results/Orders Lab Results Laboratory Tests Test 01/16/23 14:30 Range/Units White Blood Count 7.7 4.3-11.0 10^3/uL Red Blood Count 4.06 3.80-5.11 10^6/uL Hemoglobin 13.0 11.5-16.0 g/dL Hematocrit 38 35-52 % Mean Corpuscular Volume 94 80-99 fL Mean Corpuscular Hemoglobin 32 25-34 pg Mean Corpuscular Hemoglobin Concent 34 32-36 g/dL Red Cell Distribution Width 13.1 10.0-14.5 % Platelet Count 243 130-400 10^3/uL Mean Platelet Volume 10.8 9.0-12.2 fL Immature Granulocyte % (Auto) 0 % Neutrophils (%) (Auto) 50 42-75 % Lymphocytes (%) (Auto) 41 12-44 % Monocytes (%) (Auto) 8 0-12 % Eosinophils (%) (Auto) 1 0-10 % Basophils (%) (Auto) 0 0-10 % Neutrophils # (Auto) 3.9 1.8-7.8 10^3/uL Lymphocytes # (Auto) 3.1 1.0-4.0 10^3/uL Monocytes # (Auto) 0.6 0.0-1.0 10^3/uL Eosinophils # (Auto) 0.1 0.0-0.3 10^3/uL Basophils # (Auto) 0.0 0.0-0.1 10^3/uL Immature Granulocyte # (Auto) 0.0 0.0-0.1 10^3/uL Sodium Level 138 135-145 MMOL/L Potassium Level 3.2 L 3.6-5.0 MMOL/L Chloride Level 104 98-107 MMOL/L Carbon Dioxide Level 26 21-32 MMOL/L Anion Gap 8 5-14 MMOL/L Blood Urea Nitrogen 6 L 7-18 MG/DL Creatinine 0.60 0.60-1.30 MG/DL Estimat Glomerular Filtration Rate 123 BUN/Creatinine Ratio 10 Glucose Level 91 70-105 MG/DL Calcium Level 9.4 8.5-10.1 MG/DL Corrected Calcium 8.5-10.1 MG/DL Magnesium Level 2.1 1.6-2.4 MG/DL Total Bilirubin 0.3 0.1-1.0 MG/DL Aspartate Amino Transf (AST/SGOT) 18 5-34 U/L Alanine Aminotransferase (ALT/SGPT) 20 0-55 U/L Alkaline Phosphatase 94 40-136 U/L Total Protein 7.7 6.4-8.2 GM/DL Albumin 4.9 H 3.2-4.5 GM/DL My Orders Orders - KATARINA BROTHERS MD Ketorolac Injection (Ketorolac Injection (01/16/23 14:30) Prochlorperazine Injection (Prochlorpera (01/16/23 14:30) Diphenhydramine Injection (Diphenhydram (01/16/23 14:30) Ed Iv/Invasive Line Start (01/16/23 14:23) Cbc And Automated Diff (01/16/23 14:23) Comprehensive Metabolic Panel (01/16/23 14:23) Magnesium (01/16/23 14:23) Thyroid Stimulating Hormone (01/16/23 14:30) Medications Given in ED Current Medications Medications Dose Ordered Sig/Vannesa Route Start Time Stop Time Status Last Admin Dose Admin Diphenhydramine HCl 25 mg ONCE ONCE IVP 01/16/23 14:30 01/16/23 14:31 DC 01/16/23 14:32 25 MG Ketorolac Tromethamine 15 mg ONCE ONCE IV 01/16/23 14:30 01/16/23 14:31 DC 01/16/23 14:30 15 MG Prochlorperazine Edisylate 10 mg ONCE ONCE IV 01/16/23 14:30 01/16/23 14:31 DC 01/16/23 14:35 10 MG Vital Signs/I&O 01/16/23 14:40 Temp 36.5 Pulse 109 Resp 16 B/P (MAP) 122/74 (90) Pulse Ox 100 O2 Delivery Room Air Progress Progress Note : Progress Note 32-year-old female with above history coming in essentially for high blood pressure and headache. ABCs were intact and vitals were stable on presentation. Specifically, her blood pressure is normal here even despite not taking blood pressure medicines. Physical exam reassuring including a normal comprehensive neuro exam. She has no meningismus, is afebrile, and meningitis very unlikely. The headache was very slow in onset, and she is well-appearing making spontaneous subarachnoid hemorrhage extremely unlikely. CT imaging not needed at this time. An IV was placed and we will get basic labs and give her medications to help with her headache. White blood cell count was normal, hemoglobin normal. While other labs were pending, the patient walked out very quietly. We saw her leaving on the camera, we quickly went outside to try to pull the IV out, she looked at us, and they drove off quickly. We contacted the sat act instructor's department for a welfare check. We called all the numbers that she had listed in her chart, they are all disconnected. The patient most certainly would have been discharged anyways based on how well- appearing she was, but she did not go through the formal discharge process. Departure Impression Primary Impression: Headache Qualified Codes: G44.209 - Tension-type headache, unspecified, not intractable Disposition: 01 HOME, SELF-CARE Condition: Stable Departure-Patient Inst. Referrals: [facility] [place] (PCP/Family) Primary Care Physician KATARINA BROTHERS MD Jan 16, 2023 14:28
[2023-01-16] MEDS ORDERED: diphenhydrAMINE INJ 50 MG/ML VIAL IVP ONE (14:30)
[2023-01-16] MEDS ORDERED: KETOROLAC INJ 15 MG/ML VIAL IV ONE (14:30)
[2023-01-16] MEDS ORDERED: PROCHLORPERAZINE INJ 10 MG/2ML VIAL IV ONE (14:30)
[2023-01-16 14:32] LABS: BASOPHILS % (AUTO) 0 % (0-10); EOSINOPHILS # (AUTO) 0.1 10^3/uL (0.0-0.3); EOSINOPHILS % (AUTO) 1 % (0-10); HEMATOCRIT 38 % (35-52); LYMPHOCYTES # (AUTO) 3.1 10^3/uL (1.0-4.0); LYMPHOCYTES % (AUTO) 41 % (12-44); MEAN CORPUSCULAR HEMOGLOBIN 32 pg (25-34); MEAN CORPUSCULAR HGB CONC 34 g/dL (32-36); MEAN CORPUSCULAR VOLUME 94 fL (80-99); MEAN PLATELET VOLUME 10.8 fL (9.0-12.2); MONOCYTES # (AUTO) 0.6 10^3/uL (0.0-1.0); MONOCYTES % (AUTO) 8 % (0-12); NEUTROPHILS # (AUTO) 3.9 10^3/uL (1.8-7.8); NEUTROPHILS % (AUTO) 50 % (42-75); PLATELET COUNT 243 10^3/uL (130-400); WHITE BLOOD COUNT 7.7 10^3/uL (4.3-11.0)
[2023-01-16 14:40] VITALS: BP 122/74
[2023-01-16 14:51] LABS: ALANINE AMINOTRANSFERASE 20 U/L (0-55); ALBUMIN 4.9 GM/DL (3.2-4.5); ALKALINE PHOSPHATASE 94 U/L (40-136); BILIRUBIN,TOTAL 0.3 MG/DL (0.1-1.0); BUN/CREATININE RATIO 10; CALCIUM 9.4 MG/DL (8.5-10.1); CARBON DIOXIDE 26 MMOL/L (21-32); CHLORIDE 104 MMOL/L (98-107); GFR ESTIMATED 123; GLUCOSE 91 MG/DL (70-105); MAGNESIUM 2.1 MG/DL (1.6-2.4); POTASSIUM 3.2 MMOL/L (3.6-5.0); SODIUM 138 MMOL/L (135-145); TOTAL PROTEIN 7.7 GM/DL (6.4-8.2)
== END 2023-01-16 14:48 | disposition left against medical advice (07) ==
LOC: EDUNIT# 14:09 → ER FS 14:11
DX: R51.9 Headache, unspecified (principal); I10 Essential (primary) hypertension; Z79.899 Other long term (current) drug therapy
CPT/HCPCS: 36415; 80053; 83735; 84443; 85025